=== PATIENT | male | born 1975 | race Caucasian/White ===

== ENCOUNTER 2017-04-25 14:33 | Emergency (ER) | payer OTHER ==
[~2017-04-25] VITALS: Ht 185.4 cm; Wt 86.2 kg
[~2017-04-25 14:33] MED LIST: NO MEDICATIONS
[2017-04-25] MEDS ORDERED: LISINOPRIL20 MG PO (14:46)
== END 2017-04-25 16:53 | disposition home or self-care (01) ==
LOC: SED 14:33
DX: J06.9 Acute upper respiratory infection, unspecified (principal); J20.9 Acute bronchitis, unspecified; F17.210 Nicotine dependence, cigarettes, uncomplicated
CPT/HCPCS: 87651; 99283